=== PATIENT | male | born 1985 | race American Indian/Alaskan Native ===

== ENCOUNTER 2022-12-04 00:47 | Emergency (ER) | payer OTHER | END 2022-12-04 06:44 | disposition home or self-care (01) | LOC: ER 00:47 | DX: S06.309A Unspecified focal traumatic brain injury with loss of consciousness of unspecified duration, initial encounter (principal); S01.81XA Laceration without foreign body of other part of head, initial encounter; W01.10XA Fall on same level from slipping, tripping and stumbling with subsequent striking against unspecified object, initial encounter ==

== ENCOUNTER 2023-06-09 10:03 | Observation (INO) | payer SELFPAY ==
[~2023-06-09] VITALS: Ht 172.7 cm; Wt 70.5 kg
[2023-06-09 10:38] LABS: BASOPHILS ABSOLUTE AUTO 0.11 K/mm3 (0.00-0.23); BASOPHILS PERCENT AUTO 1 % (0-2); EOSINOPHILS ABSOLUTE AUTO 0.03 K/mm3 (0.00-0.68); EOSINOPHILS PERCENT AUTO 0 % (0-6); Hematocrit 39.1 % (37.0-53.0); Hemoglobin 13.7 g/dL (13.5-17.5); IMMATURE GRAN ABSOLUTE AUTO 0.12 K/mm3 (0.00-0.10); IMMATURE GRAN PERCENT AUTO 1 % (0-1); LYMPHOCYTES ABSOLUTE AUTO 0.83 K/mm3 (0.84-5.20); LYMPHOCYTES PERCENT AUTO 5 % (21-46); MONOCYTES ABSOLUTE AUTO 1.37 K/mm3 (0.16-1.47); MONOCYTES PERCENT AUTO 8 % (4-13); Mean Corpuscular HGB 31.3 pg (26.0-34.0); Mean Corpuscular Volume 89 fL (80-100); Mean Platelet Volume 8.5 fL (9.1-12.4); NEUTROPHILS PERCENT AUTO 86 % (41-73); Platelet Count 430 K/mm3 (150-400); RDW Coefficient Variation 13.7 % (11.7-14.2); RDW Standard Deviation 44.7 fL (35.1-46.3); Red Blood Cell Count 4.38 M/mm3 (4.30-5.90); White Blood Cell Count 17.06 K/mm3 (4.00-11.30)
[2023-06-09] MEDS ORDERED: LORazepam 2 MG/ML 1ML Injection ONE (10:50)
[2023-06-09 11:00] LABS: Albumin, Blood 3.9 g/dL (3.4-5.0); Bilirubin, Total 0.2 mg/dL (0.1-1.0); Bun/Creatinine Ratio 10.6 (12.0-20.0); Calcium, Blood 8.8 mg/dL (8.5-10.1); Creatinine, Blood 0.66 mg/dL (0.60-1.20); Globulin, Blood 3.9 g/dL (2.2-4.0); Potassium, Blood 3.4 mmol/L (3.5-5.5); Total Protein, Blood 7.8 g/dL (6.4-8.2)
[2023-06-09] MEDS ORDERED: LORazepam 2 MG/ML 1ML Injection IV ONE (11:05)
[2023-06-09 11:26] LABS: Magnesium, Blood 1.7 mg/dL (1.6-2.4)
[2023-06-09] MEDS ORDERED: Aspirin 81 MG Chew PO ONE (11:55)
[2023-06-09] MEDS ORDERED: FLU VACC QS2023-24(6MOS UP)/PF 60 MCG/0.5 ML SYRINGE IM SCH (12:15)
[2023-06-09] MEDS ORDERED: Acetaminophen 500 MG Tab PO PRN (12:20)
[2023-06-09] MEDS ORDERED: Polyethylene Glycol 3350 17 gm PO PRN (12:20)
[2023-06-09] MEDS ORDERED: Atorvastatin 40 MG Tab PO SCH (13:00)
[2023-06-09] MEDS ORDERED: ChlordiazePOXIDE 25 MG Cap PO ONE (13:00)
[2023-06-09] MEDS ORDERED: Thiamine HCl 100 MG Tab PO SCH (13:00)
--- NOTE | 2023-06-09 13:51 | NUR ---
REPORT RECIEVED FROM [facility] AT 1344. REPORT GIVEN TO ANA Beal AND SEIZURE PRECAUTIONS BEING PUT IN PLACE AT THIS TIME. AWAITING PT ARRIVAL
[2023-06-09 14:07] LABS: U Amphetamine Screen Not Detected; U Barbituate Screen Not Detected; U Benzodiazapine Screen DETECTED; U Buprenorphine Screen Not Detected; U Cannabinoids Screen DETECTED; U Cocaine Screen Not Detected; U Methadone Screen Not Detected; U Methamphetamine Screen Not Detected; U Opiates Screen Not Detected; U Oxycodone Screen Not Detected; U Phencyclidine Screen Not Detected
[2023-06-09 14:44] VITALS: BP 128/70
[2023-06-09] MEDS ORDERED: IBU800 MG PO (14:47)
[2023-06-09 16:11] VITALS: BP 140/64
[2023-06-09] MEDS ORDERED: Potassium Chloride 20 MEQ TabCR PO ONE (16:40)
--- NOTE | 2023-06-09 16:56 | NUR ---
SHIFT SUMMARY PT AXO, PLEASANT AND COOPERTATIVE WITH CARE. PT UP WITH SBA AND ON SEIZURE PRECAUTIONS. PT DENIES PAIN, SOB AND NV. PT ARRIVED TO ROOM AT 1430. PT RESTING COMFORTABLY IN BED AT THIS TIME. EDUCATED ON FALL PREVENTION AND INSTRUCTED TO CALL ANYTIME HE WANTS OOB. PT AGREES. BED IN LOW POSITION, CALL LIGHT WITHIN REACH. PT ORIENTED TO ROOM. SKIN IS CDI EXCEPT FOR BLISTERS TO BILATERAL HEELS.
[2023-06-09] MEDS ORDERED: levETIRAcetam 500 MG in NS 100 ML IV SCH (21:00)
[2023-06-09 21:09] VITALS: BP 122/75
[2023-06-10 04:33] VITALS: BP 121/67
--- NOTE | 2023-06-10 05:43 | NUR ---
SHIFT SUMMARY PATIENT IS ALERT AND ORIENTED. PATIENT HAS HAD NO ACUTE EVENTS THIS SHIFT. VITAL SIGNS REVIEWED. PATIENT HAS NO COMPLAINTS OF PAIN, NAUSEA, SOB, OR VOMITTING THIS SHIFT. SEIZURE PRECAUTIONS IN PLACE. NO SEIZURE ACTIVITY NOTED. PATIENT ON TELE WITH NO EVENTS. IV MED INFUSED ORDERED. BED IN LOCKED AND LOWEST POSITION. CALL LIGHT IN PLACE. WILL MONITOR UNTIL SHIFT CHANGE.
[2023-06-10 07:39] VITALS: BP 121/69
[2023-06-10] MEDS ORDERED: Aspirin 81 MG Chew PO SCH (09:00)
[2023-06-10] MEDS ORDERED: Multivitamins 1 Tab PO SCH (09:00)
[2023-06-10] MEDS ORDERED: Enoxaparin 40 MG/0.4 ML SYR SC SCH (09:00)
[2023-06-10] MEDS ORDERED: LEVE500 PO (13:22)
[2023-06-10] MEDS ORDERED: Aspir 8181 MG PO (13:22)
--- NOTE | 2023-06-10 13:53 | NUR ---
ECHO CALLED [facility] TO VERIFY IF ECHO WAS DONE. TALKED WITH TECH. ECHO WAS DONE YESTERDAY. RESULTS SHOW ON THEIR SIDE BUT NOT IN MEDITECH. SHE IS GOING TO POST IT AGAIN. CARE ONGOING.
--- NOTE | 2023-06-10 15:45 | NUR ---
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 PT AWARE OF TEST. DENTAL HYGENIST HAS VISITED PT. DENTAL CARRIES NOTED. VSS. NO SEIZURE ACTIVITY. SEIZURE PRECAUTIONS AND PADS ON SIDE RAILS. PT LOW AND LOCKED. CALL LIGHT WITH IN REACH. PT ENJOYING SLEEPING. CARE ONGOING.
--- NOTE | 2023-06-10 15:57 | NUR ---
EEG EEG AT BEDSIDE. CARE ONGOING.
[2023-06-10 16:46] VITALS: BP 114/69
[2023-06-10 19:36] VITALS: BP 110/59
[2023-06-11 04:28] VITALS: BP 104/62
--- NOTE | 2023-06-11 04:42 | NUR ---
SHIFT SUMMARY PATIENT IS ALERT AND ORIENTED. PATIENT HAS HAD NO ACUTE EVENTS THIS SHIFT. VITAL SIGNS REVIEWED. PATIENT HAS HAD NO SEIZURE ACTIVITY THIS SHIFT. IV KEPPRA INFUSED ORDERED. PATIENT SLEPT MOST OF THE SHIFT. PATIENT HAS BEEN IND THIS SHIFT WITH ADLS. PATIENT HAS DISCHARGE ORDERS AND WILL RELAY THIS TO ONCOMING RN. CARE CONTINUING.
[2023-06-11 07:24] VITALS: BP 114/63
[2023-06-11] MEDS ORDERED: LevETIRAcetam 500 MG Tab PO SCH (09:00)
== END 2023-06-11 11:11 | disposition home or self-care (01) ==
LOC: ER 10:03 → ERHOLD 10:04 → MEDS 14:36 → ENPENDDIS 06-11 10:48 → MEDS 06-11 11:11
PROVIDERS: Emergency Medicine; Physician Assistant; ADMIT Internal Medicine
DX: G45.9 Transient cerebral ischemic attack, unspecified (principal); R56.9 Unspecified convulsions; Z72.0 Tobacco use
CPT/HCPCS: 36415; 70450; 70551; 80053; 82947; 83690; 83735; 84132; 85025; 93005; 93010; 93306; 96365; 96366; 96372; 96374; 96375; 99285-25; A9270; G0378; J1650; J1953; J2060

== ENCOUNTER 2023-10-29 19:09 | Emergency (ER) | payer OTHER ==
[~2023-10-29] VITALS: Ht 175.3 cm; Wt 72.6 kg
[~2023-10-29 19:09] MED LIST: Aspir 8181 MG PO; IBU800 MG PO; LEVE500 PO
[2023-10-29 21:13] LABS: BASOPHILS PERCENT AUTO 1 % (0-2); EOSINOPHILS ABSOLUTE AUTO 0.03 K/mm3 (0.00-0.68); EOSINOPHILS PERCENT AUTO 0 % (0-6); Hematocrit 39.7 % (37.0-53.0); IMMATURE GRAN ABSOLUTE AUTO 0.09 K/mm3 (0.00-0.10); IMMATURE GRAN PERCENT AUTO 1 % (0-1); LYMPHOCYTES ABSOLUTE AUTO 0.52 K/mm3 (0.84-5.20); LYMPHOCYTES PERCENT AUTO 3 % (21-46); MONOCYTES ABSOLUTE AUTO 1.08 K/mm3 (0.16-1.47); MONOCYTES PERCENT AUTO 6 % (4-13); Mean Corpuscular HGB 31.1 pg (26.0-34.0); Mean Corpuscular HGB Conc 35.3 g/dL (31.5-36.5); Mean Corpuscular Volume 88 fL (80-100); Mean Platelet Volume 8.8 fL (9.1-12.4); NEUTROPHILS ABSOLUTE AUTO 17.18 K/mm3 (1.96-9.15); NEUTROPHILS PERCENT AUTO 90 % (41-73); Platelet Count 337 K/mm3 (150-400); RDW Coefficient Variation 12.6 % (11.7-14.2); RDW Standard Deviation 41.1 fL (35.1-46.3)
[2023-10-29 21:28] LABS: Source, Urine Clean Catch
[2023-10-29 21:32] LABS: Appearance, Urine Cloudy (Clear); Bilirubin, Urine Neg (Neg); Blood, Urine 3+ (Neg); Color, Urine Yellow (P-Yellow); Glucose Qualitative, Urine Neg (Neg); Ketones, Urine 3+ (Neg); Leukocyte Esterase, Urine Neg (Neg); Nitrite, Urine Neg (Neg); Protein, Urine 3+ (Neg); Specific Gravity, Urine 1.025 (1.003-1.022); Urobilinogen, Urine NORM (Normal)
[2023-10-29 21:38] LABS: Albumin, Blood 4.5 g/dL (3.4-5.0); Albumin/Globulin Ratio 1.2 (0.8-1.8); Bilirubin, Total 0.8 mg/dL (0.1-1.0); Bun/Creatinine Ratio 12.7 (12.0-20.0); Calcium, Blood 9.8 mg/dL (8.5-10.1); Creatinine, Blood 0.79 mg/dL (0.60-1.20); Globulin, Blood 3.8 g/dL (2.2-4.0); Potassium, Blood 4.4 mmol/L (3.5-5.5); Total Protein, Blood 8.3 g/dL (6.4-8.2)
[2023-10-29 21:44] LABS: Granular Casts 0-2 /lpf (0); Mucus Light (0-Heavy)
[2023-10-29 21:45] LABS: Red Blood Cells, Urine 0-2 /hpf (0-2); Squamous Epithelial Cells Rare /hpf (Few); U Amphetamine Screen Not Detected; U Barbituate Screen Not Detected; U Benzodiazapine Screen Not Detected; U Buprenorphine Screen Not Detected; U Cannabinoids Screen DETECTED; U Cocaine Screen Not Detected; U Methadone Screen Not Detected; U Methamphetamine Screen Not Detected; U Opiates Screen Not Detected; U Oxycodone Screen Not Detected; U Phencyclidine Screen Not Detected
[2023-10-29 21:46] LABS: Amorphous Light (0-Heavy); Bacteria Mod /hpf
[2023-10-29 21:48] LABS: Other Crystals Many /hpf
[2023-10-29] MEDS ORDERED: NS 1,000 ML IV SCH (22:45)
[2023-10-30 00:30] VITALS: BP 135/78
== END 2023-10-30 00:45 | disposition home or self-care (01) ==
LOC: ER 19:09
PROVIDERS: Physician Assistant
DX: G40.909 Epilepsy, unspecified, not intractable, without status epilepticus (principal); F10.129 Alcohol abuse with intoxication, unspecified; R55 Syncope and collapse; Z79.899 Other long term (current) drug therapy
CPT/HCPCS: 74177; 80053; 81001; 83690; 85025; 87086; 96360-59; 99284-25; J7030; Q9967